=== PATIENT | male | born 1950 | race Caucasian/White ===

== ENCOUNTER 2017-10-22 09:59 | Emergency (ER) | payer OTHER, MEDICAID ==
[~2017-10-22] VITALS: Ht 180.3 cm; Wt 63.6 kg
[2017-10-22] MEDS ORDERED: LIDOCAINE 1% (MPF) 5 ML VIAL SC ONE (10:00)
[2017-10-22 10:20] VITALS: BP 153/97; PULSE 88; RESP 20; TEMP 97.8; Ht 180.3 cm; Wt 63.6 kg
--- NOTE | 2017-10-22 10:49 | ERD ---
ER Documentation Chief Complaint Chief Complaint Evaluate for PICC line placement HPI This is a 67-year-old male history of chronic encephalopathy, trach who apparently pulled out his PICC line yesterday evening. It appears the patient went to an outside hospital emergency department, they did not have PICC line team access and the patient was taken back to his long-term facility. The patient was sent today because someone told him that we could place a PICC line here. Further history is very limited. The patient is nonverbal without complaints. ROS HE is nonverbal PMhx/Soc History of Surgery: Yes ([place]) Hx Neurological Disorder: Yes (stroke) Hx Respiratory Disorders: Yes (trach) Hx Cardiac Disorders: Yes (HTN, afib) Hx Miscellaneous Medical Probl: Yes (DM) Hx Alcohol Use: No Hx Substance Use: No Hx Tobacco Use: No Smoking Status: Never smoker Physical Exam Vitals Vital Signs Date Time Temp Pulse Resp B/P Pulse Ox O2 Delivery O2 Flow Rate FiO2 10/22/17 10:20 97.8 88 20 153/97 100 10/22/17 10:20 97.8 88 20 153/97 100 Room Air Physical Exam General: No significant distress Head: Normocephalic, atraumatic. Eyes: Pupils equally reactive, EOM intact ENT: Moist mucous membranes Neck: Supple, no lymphadenopathy Respiratory: Lungs clear bilaterally, no distress Cardiovascular: RRR, no murmurs, rubs, or gallops Abdominal: Soft, non-tender, non-distended, no peritoneal signs : Deferred MSK: Limited movement of all 4 extremities, no bony abnormalities Neurologic: Limited exam, and encephalopathic, limited movement of all 4 extremities Skin: No rash, no significant breakdown Psych: Unable to assess Results 24 hrs Current Medications Medications (Trade) Dose Ordered Sig/Gerri Route PRN Reason Start Time Stop Time Status Last Admin Dose Admin Lidocaine (Xylocaine 1% (Mpf)) 5 ml ONCE ONCE SC 10/22/17 10:00 10/22/17 10:28 DC Procedures/MDM The patient was sent to the emergency room because he pulled out his PICC line yesterday evening. After multiple phone calls to the assisted living facility they were able to reach the managing physician, Dr. Marrero (?sp). It appears that the patient does not require PICC line access at this point. He is not receiving medications that require PICC line. At this point the patient does not require PICC line based on conversations with the assisted living facility and the managing physician. The patient is hemodynamically stable with only slight hypertension that appears to be his baseline. The patient has no evidence of infection. He is resting comfortably without acute medical issues at this point. The patient does not require laboratory testing or diagnostic imaging. The patient will be discharged back to long-term facility for further management. Departure Diagnosis: Primary Impression: Encounter for medical screening examination Condition: Stable Patient Instructions: Medical Screening Exam, Nonurgent Referrals: [facility] YOU HAVE RECEIVED A MEDICAL SCREENING EXAM AND THE RESULTS INDICATE THAT YOU DO NOT HAVE A CONDITION THAT REQUIRES URGENT TREATMENT IN THE EMERGENCY DEPARTMENT. FURTHER EVALUATION AND TREATMENT OF YOUR CONDITION CAN WAIT UNTIL YOU ARE SEEN IN YOUR DOCTORS OFFICE WITHIN THE NEXT 1-2 DAYS. IT IS YOUR RESPONSIBILITY TO MAKE AN APPOINTMENT FOR FOLOW-UP CARE. IF YOU HAVE A PRIMARY DOCTOR --you should call your primary doctor and schedule an appointment IF YOU DO NOT HAVE A PRIMARY DOCTOR YOU CAN CALL OUR PHYSICIAN REFERRAL HOTLINE AT IF YOU CAN NOT AFFORD TO SEE A PHYSICIAN YOU CAN CHOSE FROM THE FOLLOWING [facility] [id number] [facility]. [facility] [address] [facility]. [facility] [address] [facility] [facility] [address] [facility] [facility] [address] [facility]. [facility]. [address] [facility]. [facility] YOU HAVE RECEIVED A MEDICAL SCREENING EXAM AND THE RESULTS INDICATE THAT YOU DO NOT HAVE A CONDITION THAT REQUIRES URGENT TREATMENT IN THE EMERGENCY DEPARTMENT. FURTHER EVALUATION AND TREATMENT OF YOUR CONDITION CAN WAIT UNTIL YOU ARE SEEN IN YOUR DOCTORS OFFICE WITHIN THE NEXT 1-2 DAYS. IT IS YOUR RESPONSIBILITY TO MAKE AN APPOINTMENT FOR FOLOW-UP CARE. IF YOU HAVE A PRIMARY DOCTOR --you should call your primary doctor and schedule and appointment IF YOU DO NOT HAVE A PRIMARY DOCTOR YOU CAN CALL OUR PHYSICIAN REFERRAL HOTLINE AT . IF YOU CAN NOT AFFORD TO SEE A PHYSICIAN YOU CAN CHOSE FROM THE FOLLOWING [facility] INSTIT[facility]: [facility] [address] [place] [address] [facility] [address] [place] [address] [facility] + [facility] [address] [place] [address] LEO LUCAS MD Oct 22, 2017 10:49
== END 2017-10-22 11:20 | disposition home or self-care (01) ==
LOC: E/R 09:59
DX: Z02.89 Encounter for other administrative examinations (principal); I10 Essential (primary) hypertension; E11.9 Type 2 diabetes mellitus without complications
CPT/HCPCS: 99282